=== PATIENT | female | born 1990 | race Hispanic/Latino ===

== ENCOUNTER 2018-05-19 14:49 | Emergency (ER) | payer OTHER ==
[~2018-05-19] VITALS: Ht 142.2 cm; Wt 81.6 kg
[2018-05-19 14:55] VITALS: BP 136/62
--- NOTE | 2018-05-19 15:58 | ED GENERAL ADULT ---
History of Present Illness General Chief Complaint: Fall Stated Complaint: 6 MONTHS , S/P FALL DOWN 6 STEPS Source: patient Exam Limitations: no limitations Vital Signs & Intake/Output Vital Signs & Intake/Output Vital Signs Date Time Temp Pulse Resp B/P B/P Pulse O2 O2 Flow FiO2 Mean Ox Delivery Rate 05/19 1455 97.9 88 18 136/62 100 Triage Note: PT BIBA FROM HOME FOR SLIIPING DOWN 5-6 [employer]. PT IS 6MONTHS . DENIES ANY ABD PAIN. DENIES LOC, DENIES HITTING HER HEAD, C/O 7/10 LOWER BACK PAIN. MD AWARE. Triage Nurses Notes Reviewed? yes : Yes Patient currently breastfeeds: No HPI: This is a 6 months 28-year-old female presenting to the hospital after fall at home. Patient states that she slipped while walking downstairs and landed on her buttocks, slid down the remainder of the stairs. Did not strike her head. No loss of consciousness. Complains only of mild lower back pain. Able ambulate without difficulty. She states she has not felt the baby move since the fall. She arrives via EMS, hemodynamic is stable and neurologically intact. Past History Travel History Traveled to [place] past 21 day No Medical History Any Pertinent Medical History? none Surgical History Surgical History: none Psychosocial History What is your primary language Russian Tobacco Use: Never used ETOH Use: denies use Illicit Drug Use: denies illicit drug use Family History Hx Contributory? No Review of Systems Review of Systems Constitutional: Reports: no symptoms. Musculoskeletal: Reports: see HPI, back pain. All Other Systems: Reviewed and Negative Physical Exam Physical Exam General Appearance: well developed/nourished, no apparent distress, awake, comfortable Head: atraumatic, normal appearance Eyes: Bilateral: normal appearance, PERRL, EOMI. Ears, Nose, Throat: normal pharynx, normal ENT inspection Neck: normal inspection, supple, full range of motion Respiratory: normal breath sounds, no respiratory distress, lungs clear Cardiovascular: regular rate/rhythm, normal peripheral pulses Back: normal inspection, normal range of motion, no vertebral tenderness Extremities: normal inspection, normal capillary refill, normal range of motion, no edema Core Measures ACS in differential dx? No CVA/TIA Diagnosis: No Sepsis Present: No Sepsis Focused Exam Completed? No Progress Differential Diagnoses I considered the following diagnoses in my evaluation of the patient: Low suspicion for fracture, spinal injury, head injury, concussion. Given lack of abdominal pain or tenderness or suggestive findings, low suspicion for acute intra-abdominal injury or acute injury. Doubt acute uterine rupture. Plan of Care: Current Medications Sig/Martinez Start time Last Medication Dose Stop Time Status Admin Acetaminophen 650 MG ONCE ONE 05/19 1615 AC (Tylenol) 05/19 161 Patient well-appearing on reassessment. Bedside ultrasound reveals 1 live intrauterine with a heart rate of 150. Patient discharged home with return precautions and follow-up instructions. Initial ED EKG: none Departure Departure Time of Disposition: 1608 Disposition: HOME OR SELF CARE Condition: Stable Clinical Impression Primary Impression: Fall on stairs Secondary Impressions: Pain in lower back Referrals: Patient Has No Primary Care Dr (PCP/Family) Additional Instructions: Thank you for coming to [facility] today. As we discussed, your bedside ultrasound was normal. Please take Tylenol, 500 mg every 6-8 hours as needed for pain. I also recommend that you use ice wrapped in a towel on the painful area every 6-8 hours as needed. I recommend that you come back to the emergency department immediately if you develop any abdominal pain, nausea, vomiting, lightheadedness, worsening back pain, trouble walking or any other concerning symptoms Departure Forms: Customer Survey General Discharge Information Critical Care Note Critical Care Note Critical Care Time: non-applicable
== END 2018-05-19 16:56 ==
LOC: ERH 14:49
DX: O9A.212 Injury, poisoning and certain other consequences of external causes complicating pregnancy, second trimester (principal); M54.5 Low back pain; Z3A.00 Weeks of gestation of pregnancy not specified; W10.9XXA Fall (on) (from) unspecified stairs and steps, initial encounter; Y93.01 Activity, walking, marching and hiking
CPT/HCPCS: 99282